=== PATIENT | male | born 1980 | race Caucasian/White ===

== ENCOUNTER → 2024-07-29 10:09 | Outpatient (BNVA) | payer BC, SELFPAY | PROVIDERS: PCP Family Medicine; Visit Provider Family Medicine | DX: Z00.00 Encounter for general adult medical examination without abnormal findings (principal) | CPT/HCPCS: 80053; 80061; 84443; 85025 ==

== ENCOUNTER 2024-12-04 13:36 | Outpatient (CLI) | payer BC, SELFPAY | END 2024-12-04 13:37 | disposition home or self-care (01) | LOC: SLEEP 13:42 | PROVIDERS: PCP Family Medicine; Visit Provider Family Medicine | DX: G47.33 Obstructive sleep apnea (adult) (pediatric) (principal); G47.36 Sleep related hypoventilation in conditions classified elsewhere | CPT/HCPCS: G0399 ==